=== PATIENT | female | born 1980 | race Caucasian/White ===

== ENCOUNTER 2019-09-10 12:55 | Emergency (ER) | payer OTHER, SELFPAY ==
[2019-09-10 12:56] VITALS: BP 119/94; PULSE 95; RESP 16; TEMP 36.3; O2SAT 96; BMI 56.2
--- NOTE | 2019-09-10 13:49 | ED.VIS.GEN ---
History of Present Illness Chief Complaint: Other, Pain/Inj Narrative: 39-year-old female presenting for testing for COVID?19. 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 He tested positive so she came to be tested. She states she sometimes has a cough and sometimes has a sore throat but otherwise has not had any significant symptoms. She states that her boss as well as her primary care doctor told her to come to the emergency room to be tested instead of quarantining at home. She states that they have not tested the patients that she has been around yet. She has had no fever, loss of taste or smell, chest pain, shortness of breath or other severe symptoms. Past Medical History - Allergies and Home Meds Allergies/Adverse Reactions: Allergies Penicillins [PCN] Allergy (Verified 07/09/15 11:02) Rash Primary Care Physician: Leonor Edmond MD [Primary Care Provider] - Prior records reviewed: Yes Surgical History: noncontributory Lives: Spouse/ Significant Other Smoking Status: Never smoker Alcohol: None Drugs: None Review of Systems General: Denies: Chills, Fever, Sweats Eyes: Denies: Visual changes - bilaterally, Diplopia ENT: Reports: Sore throat. Denies: Rhinorrhea Cardiovascular: Denies: Chest pain, Palpitations Respiratory: Reports: Cough. Denies: Dyspnea, Dyspnea on exertion Gastrointestinal: Denies: Abdominal pain, Nausea, Vomiting, Diarrhea, Melena, Hematochezia Genitourinary: Denies: Dysuria, Hematuria, Frequency Musculoskeletal: Denies: Back pain, Extremity Pain Skin: Denies: Rash, Wounds Neurological: Denies: Headache, Weakness, Numbness Physical Exam Vital Signs/Narrative: Vital Signs Temp Pulse Resp BP Pulse Ox 09/10/19 12:56 97.4 F L 95 16 119/94 H 96 Inital Vital Signs reviewed: Yes General: Obese, No Acute Distress Head: Normocephalic, Atraumatic Eyes: Perrl ENT: Moist mucous membranes Cardiovascular: Regular rate, Regular rhythm Abdomen: Soft Extremities: Nontender Skin: Normal color Neurological: Alert, Oriented x3 Psychological: Normal affect Diagnostic/Tx/Re-eval - Medical Decision Making Patient presents with very mild symptoms and wants to be tested for COVID?19. Her has already tested positive today. She likely has COVID?19. I recommended to her that she should quarantine. 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 She acknowledged understanding of this. Impression: 1. Likely Covid-19 exposure ED Disposition - Plan for ED Patient: Disposition: Home or Assisted Living Diagnosis: URI, acute, COVID-19 Instructions: ED URI Viral Referrals: Leonor Edmond MD [Primary Care Provider] -
[2019-09-10 14:44] LABS: Probe Check PASS; Specimen Processing Control PASS
== END 2019-09-10 14:02 | disposition home or self-care (01) ==
PROVIDERS: Emergency Provider Student in an Organized Health Care Education/Training Program; PCP Family Medicine
DX: J06.9 Acute upper respiratory infection, unspecified (principal); U07.1 COVID-19
CPT/HCPCS: 87635; 94799; 99282; U0003

== ENCOUNTER 2021-10-12 09:30 | Outpatient (RCR) | payer SELFPAY ==
[2021-10-05 08:47] VITALS: BP 172/96; PULSE 76; TEMP 36.1; BMI 60.0
--- NOTE | 2021-10-05 12:54 | HP.PCM_ITS ---
History of Present Illness Date of Service: 10/05/21 Chief Complaint: Swelling, edema, and lymphedema in the lower extremities bilaterally History of Wound: This is a 41-year-old female who presents with swelling, edema, and lymphedema in the lower extremities bilaterally. These manifestations have been present for a prolonged period of time, but more severe within the last 2 to 3 months. The manifestations are slightly more pronounced in the left lower extremity. Mild erythema has been noted in the supramalleolar area of the left lower extremity, diagnosed by her primary care physician's as cellulitis, and she has completed a recent course of doxycycline, and is currently on Keflex orally. She weighs 480 pounds, and stands 6 feet 3 inches tall. Her BMI is 60. Therefore, she is morbidly obese. She claims to be active, employed as the digital project manager of a assisted. She claims to sleep on a flat mattress at night, with her legs slightly elevated. The swelling is minimal in the morning upon awakening, and more pronounced in the evening, prior to bedtime. She denies a history of lower extremity thrombophlebitis. [facility] Medical History GERD (gastroesophageal reflux disease) Hypertension Hypothyroidism Leg edema Leg swelling Lymphedema associated with obesity Morbid obesity Home Medications furosemide 40 mg tablet 40 mg PO DAILY 09/29/14 [History Last Taken Unknown] glucosamine HCl 500 mg-msm 83 mg-chondroitin 400 mg tablet 1 ea PO DAILY 09/29/14 [History Last Taken Unknown] lisinopril 10 mg tablet 10 mg PO DAILY 09/29/14 [History Last Taken Unknown] loratadine 10 mg tablet (Allergy Relief (loratadine)) 10 mg PO DAILY 09/29/14 [History Last Taken Unknown] metoprolol succinate 25 mg tablet,extended release 24 hr 25 mg PO DAILY 09/29/14 [History Last Taken Unknown] multivitamin,[id number]-qobkkujc 27 mg-0.4 mg tablet (Therems-M) 1 tab PO DAILY 09/29/14 [History Last Taken Unknown] potassium chloride 10 mEq tablet,extended release (Klor-Con) 10 meq PO DAILY 09/29/14 [History Last Taken Unknown] naproxen 500 mg tablet 500 mg PO BID PRN ##20 11/06/16 [Rx Last Taken Unknown] Allergy/AdvReac Type Severity Reaction Status Date / Time Penicillins [PCN] Allergy Rash Verified 07/09/15 11:02 Surgical History History of section History of cholecystectomy History of right oophorectomy Social History Smoking Status: Former smoker Vital Signs Vital Signs Vital Signs: 10/05/21 08:47 Temperature 97.0 F L Temperature Source Temporal Pulse Rate 76 Blood Pressure 172/96 H Blood Pressure Mean 121 Blood Pressure Source Monitor Blood Pressure Position Sitting Blood Pressure Location Right Arm Weight Weight: 480 lb 9.723 oz Body Mass Index (BMI) 60.0 Physical Exam Const alert, oriented x3 and no apparent distress Constitutional Narrative: The patient is morbidly obese, standing 6 feet 3 inches tall and weighing 480 pounds. Her BMI is 60. General Appearance: cooperative, comfortable, well kempt and well developed Orientation / Consciousness: awake, oriented to person, oriented to place and oriented to time Exam Limitations: no limitations Nutritional Appearance: morbidly obese HEENT normocephalic and head/scalp atraumatic Head and Scalp: normal to inspection, normocephalic and atraumatic External Ear: external ears normal Eyes PERRL and EOMs intact bilaterally General Eye: normal appearance of both eyes Resp normal respiratory effort, normal air movement, no retractions and no use of accessory muscles Effort and Inspection: able to speak in complete sentences Extremity no calf tenderness General Extremity: Negative for clubbing or cyanosis Skin Wound Narrative: There are no open wounds or ulcerations in the patient's lower extremities. There are no significant skin changes, though faint inflammatory erythema is noted in the left supramalleolar area. There is significant swelling, edema, and lymphedema bilaterally, more pronounced on the left. Scattered telangiectasias are noted bilaterally Neuro oriented x3, CN's II-XII intact bilaterally, moves all extremities and no focal motor deficits Sensorium / Orientation: awake, alert, oriented to person, oriented to place and oriented to time Psych Appearance: grossly normal and appropriate Attitude: calm Activity / Motor Behavior: appropriate eye contact Speech: normal speech Mood & Affect: euthymic mood Thought Process: normal thought process Thought Content: normal thought content Attention / Concentration: attention grossly intact Debridement Note Debridement Note No debridement was completed: No debridement was completed today (There are no open wounds or ulcerations.) Post-Debridement Measurements and Additional Note: Post-Debridement Measurements/Treatment WC - Nurse 1 - General Ulcer Assessment Start: 10/05/21 08:47 Freq: Status: Active Protocol: MANDO.LOWEXT Activity Type Activity Date Activity User E-sign Co-sign Detail Recorded Client Recorded Date Recorded By Document 10/05/21 08:47 CALEB [id number] 10/05/21 08:57 CALEB 10/05/21 08:47 WC - Today's Visit Information Type of service Follow-up Visit (Physician/FACILITIES FLIGHT CHECK PILOT ) Arrival Mode Ambulatory Patient Identification Verified (Name & Yes ) Height and Weight Height 6 ft 3 in Weight 480 lb 9.723 oz Weight in Pounds 480.6 lbs Body Mass Index (BMI) 60.0 BMI Classification Obese BSA - Francisco 3.19 Vital Signs Temperature (97.8 F-99.1 F) 97.0 F L Temperature Source Temporal Pulse Rate (60-100) 76 Pulse Location Monitor Blood Pressure (90/60-120/80) 172/96 H Blood Pressure Mean 121 Source Monitor Position Sitting Blood Pressure Location Right Arm History Since Last Visit- (Skip if this is Patient's initial visit) Have you changed medications since your No last visit? Any new allergies or adverse reactions No Had a fall/change in ADL's that may No increase risk of falls Signs or symptoms of abuse and/or No neglect since last visit Have you been in the hospital since your No last visit? Has dressing in place as prescribed No Has compression in place as prescribed N/A Has offloadiing in place as prescribed N/A Experienced any changes in pain level or No management Left Footwear Regular Shoe Right Footwear Regular Shoe Pain Scale: 0-10 Numeric Is Patient Pain Free? Yes Lower Extremity Assessment/ Foot Assessment/ Toe Nail Assessment Left -Popliteal Doppler Multiphasic -Posterior Tibial Doppler Multiphasic -Dorsalis Pedis Doppler Multiphasic -Extremity Color Red,Normal -Hair Growth on Legs No -Hair Growth on Toes No -Temperature of Extremity Warm -Capillary Refill Greater than 3 Seconds -Dependent Rubor No -Blanched when Elevated N/A -Lipodermatosclerosis No -Thick No -Discolored No -Deformed No -Improper Length & Hygeine No Right -Popliteal Doppler Multiphasic -Posterior Tibial Doppler Multiphasic -Dorsalis Pedis Doppler Multiphasic -Extremity Color Red -Hair Growth on Legs No -Hair Growth on Toes No -Temperature of Extremity Warm -Capillary Refill Greater than 3 Seconds -Dependent Rubor No -Blanched when Elevated No -Lipodermatosclerosis No -Thick No -Discolored No -Deformed No -Improper Length & Hygeine No WC - Nurse 1 - General Ulcer Measurement Start: 10/05/21 08:47 Freq: Status: Active Protocol: Activity Type Activity Date Activity User E-sign Co-sign Detail Recorded Client Recorded Date Recorded By Document 10/05/21 08:47 KR [id number] 10/05/21 08:57 KR 10/05/21 08:47 Wound Center Nurse 1 Right Calf (cm) 68.5 Right Ankle (cm) 32.5 Left Calf (cm) 68 Left Ankle (cm) 35.5 WC - Nurse 2 - General Ulcer CM Notes Start: 10/05/21 08:47 Freq: Status: Active Protocol: Activity Type Activity Date Activity User E-sign Co-sign Detail Recorded Client Recorded Date Recorded By Document 10/05/21 09:31 PL [id number] 10/05/21 09:32 PL 10/05/21 09:31 Pain Scale: 0-10 Numeric Is Patient Pain Free? Yes Assessment/Plan Assessment/Plan (1) Leg swelling: CODE(S): M79.89 - Other specified soft tissue disorders (2) Leg edema: CODE(S): R60.0 - Localized edema (3) Lymphedema associated with obesity: CODE(S): I89.0 - Lymphedema, not elsewhere classified; E66.9 - Obesity, unspecified (4) Morbid obesity: CODE(S): E66.01 - Morbid (severe) obesity due to excess calories (5) Hypothyroidism: CODE(S): E03.9 - Hypothyroidism, unspecified (6) Hypertension: CODE(S): I10 - Essential (primary) hypertension (7) History of cholecystectomy: CODE(S): Z90.49 - Acquired absence of other specified parts of digestive tract (8) History of right oophorectomy: CODE(S): Z90.721 - Acquired absence of ovaries, unilateral (9) GERD (gastroesophageal reflux disease): CODE(S): K21.9 - Gastro-esophageal reflux disease without esophagitis (10) History of section: CODE(S): Z98.891 - History of uterine scar from previous surgery PLAN: Plan This is a morbidly obese 41-year-old female presents with a longstanding history of swelling, edema, and lymphedema in her lower extremities. She has been treated for cellulitis recently by her primary care physicians, suspected due to faint erythema in the left supramalleolar area. However, this appears more related to an inflammatory process rather than infection. She is currently taking a course of Keflex, and has been advised to continue to completion. A lengthy discussion has been undertaken at the bedside with the patient, and her , regarding the appropriate measures to be implemented. She has been advised to continue sleeping on a flat mattress at night, and elevation of the lower extremities while sleeping is favorable. She has been encouraged to elevate her lower extremities is much as possible during daytime hours. Leg elevation is to be to heart level, or higher. Prolonged, idle sitting has been discouraged. Activity has been encouraged. Weight loss has been recommended, by any means possible. This may include, among the options, enhancement of activity, exercise, dietary means, etc. Bariatric surgery may even be a consideration, to be discussed with the patient other medical providers. We are to implement compression to the lower extremities by means of a 3M 2 layer compression wrap, which will be changed twice weekly. Compression wraps will be implemented initially, in an effort to minimize the degree of swelling and edema to a baseline level, following which more long-term compression will be employed, such as graduated compression stockings or CircAid garments of at least 20 to 30 mmHg compression. We are to also pursue the possibility of mechanical pneumatic compression garments for the lower extremities, which can be used on a daily basis. The patient is to return in 1 week for reassessment. Total time: 55 minutes
[2021-10-08 11:02] VITALS: BP 141/91; PULSE 91; TEMP 36.1; BMI 60.0
[2021-10-12 09:28] VITALS: BP 143/87; PULSE 98; RESP 18; TEMP 36.4; BMI 60.0
--- NOTE | 2021-10-12 12:32 | HP.PCM_ITS ---
History of Present Illness Date of Service: 10/12/21 Chief Complaint: Swelling, edema, and lymphedema in the lower extremities bilaterally History of Wound: This is a 41-year-old female who presented with swelling, edema, and lymphedema in the lower extremities bilaterally. These manifestations had been present for a prolonged period of time, but more severe within the 2 to 3 months prior to presentation. The manifestations were slightly more pronounced in the left lower extremity. Mild erythema was noted in the supramalleolar area of the left lower extremity, diagnosed by her primary care physician's as cellulitis, and she had completed a recent course of doxycycline, followed by Keflex orally. She weighs 480 pounds, and stands 6 feet 3 inches tall. Her BMI is 60. Therefore, she is morbidly obese. 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 She claims to sleep on a flat mattress at night, with her legs slightly elevated. The swelling is minimal in the morning upon awakening, and more pronounced in the evening, prior to bedtime. She denies a history of lower extremity thrombophlebitis. [facility] Medical History GERD (gastroesophageal reflux disease) Hypertension Hypothyroidism Leg edema Leg swelling Lymphedema associated with obesity Morbid obesity Home Medications furosemide 40 mg tablet 40 mg PO DAILY 09/29/14 [History Last Taken Unknown] glucosamine HCl 500 mg-msm 83 mg-chondroitin 400 mg tablet 1 ea PO DAILY 09/29/14 [History Last Taken Unknown] lisinopril 10 mg tablet 10 mg PO DAILY 09/29/14 [History Last Taken Unknown] loratadine 10 mg tablet (Allergy Relief (loratadine)) 10 mg PO DAILY 09/29/14 [History Last Taken Unknown] metoprolol succinate 25 mg tablet,extended release 24 hr 25 mg PO DAILY 09/29/14 [History Last Taken Unknown] multivitamin,ys-sdwo-ygifiyzj 27 mg-0.4 mg tablet (Therems-M) 1 tab PO DAILY 09/29/14 [History Last Taken Unknown] potassium chloride 10 mEq tablet,extended release (Klor-Con) 10 meq PO DAILY 09/29/14 [History Last Taken Unknown] naproxen 500 mg tablet 500 mg PO BID PRN ##20 11/06/16 [Rx Last Taken Unknown] Allergy/AdvReac Type Severity Reaction Status Date / Time Penicillins [PCN] Allergy Rash Verified 07/09/15 11:02 Surgical History History of section History of cholecystectomy History of right oophorectomy Social History Smoking Status: Former smoker Vital Signs Vital Signs Vital Signs: 10/12/21 09:28 Temperature 97.6 F L Temperature Source Temporal Pulse Rate 98 Respiratory Rate 18 Blood Pressure 143/87 H Blood Pressure Mean 105 Blood Pressure Source Monitor Blood Pressure Position Sitting Blood Pressure Location Right Arm Oxygen Delivery Method Room Air Weight Weight: 480 lb 9.723 oz Body Mass Index (BMI) 60.0 Physical Exam Const alert, oriented x3 and no apparent distress Constitutional Narrative: The patient is morbidly obese, standing 6 feet 3 inches tall and weighing 480 pounds. Her BMI is 60. General Appearance: cooperative, comfortable, well kempt and well developed Orientation / Consciousness: awake, oriented to person, oriented to place and oriented to time Exam Limitations: no limitations Nutritional Appearance: morbidly obese HEENT normocephalic and head/scalp atraumatic Head and Scalp: normal to inspection, normocephalic and atraumatic External Ear: external ears normal Eyes PERRL and EOMs intact bilaterally General Eye: normal appearance of both eyes Resp normal respiratory effort, normal air movement, no retractions and no use of accessory muscles Effort and Inspection: able to speak in complete sentences Extremity no calf tenderness General Extremity: Negative for clubbing or cyanosis Skin Wound Narrative: There are no open wounds or ulcerations in the patient's lower extremities. There are no significant skin changes, though faint inflammatory erythema is noted in the left supramalleolar area. There is significant swelling, edema, and lymphedema bilaterally, more pronounced on the left. However, the degree of swelling and edema in her lower extremities has improved since her initial visit a week ago. Circumference measurements are documented elsewhere. Scattered telangiectasias are noted bilaterally Neuro oriented x3, CN's II-XII intact bilaterally, moves all extremities and no focal motor deficits Sensorium / Orientation: awake, alert, oriented to person, oriented to place and oriented to time Psych Appearance: grossly normal and appropriate Attitude: calm Activity / Motor Behavior: appropriate eye contact Speech: normal speech Mood & Affect: euthymic mood Thought Process: normal thought process Thought Content: normal thought content Attention / Concentration: attention grossly intact Debridement Note Debridement Note No debridement was completed: No debridement was completed today (There are no open wounds or ulcerations.) Post-Debridement Measurements and Additional Note: Post-Debridement Measurements/Treatment - Nurse 1 - General Ulcer Assessment Start: 10/05/21 08:47 Freq: Status: Active Protocol: BANDAR Activity Type Activity Date Activity User E-sign Co-sign Detail Recorded Client Recorded Date Recorded By Document 10/05/21 08:47 [id number] 10/05/21 08:57 KR Document 10/08/21 11:02 KR [id number] 10/08/21 11:03 KR Document 10/12/21 09:28 [facility] [id number] 10/12/21 09:38 [facility] 10/05/21 10/08/21 10/12/21 08:47 11:02 09:28 - Today's Visit Information Type of service Follow-up Visit Nurse-only Follow-up Visit (Physician/BAKER BISCUIT Visit (Physician/BAKER BISCUIT ) ) Arrival Mode Ambulatory Ambulatory Ambulatory Transfer Assistance None Accompanied by Patient Identification Verified (Name & Yes Yes Yes ) Patient Requires Transmission-Based No Precautions Height and Weight Height 6 ft 3 in Weight 480 lb 9.723 oz Weight in Pounds 480.6 lbs Body Mass Index (BMI) 60.0 60.0 60.0 BMI Classification Obese Obese Obese BSA - Francisco 3.19 Vital Signs Temperature (97.8 F-99.1 F) 97.0 F L 97.0 F L 97.6 F L Temperature Source Temporal Temporal Temporal Pulse Rate (60-100) 76 91 98 Pulse Location Monitor Monitor Monitor Respiratory Rate (12-18) 18 Respiratory rate source Observation Oxygen Delivery Method Room Air Blood Pressure (90/60-120/80) 172/96 H 141/91 H 143/87 H Blood Pressure Mean 121 107 105 Source Monitor Monitor Monitor Position Sitting Semi-Fowlers Sitting Blood Pressure Location Right Arm Left Arm Right Arm History Since Last Visit- (Skip if this is Patient's initial visit) Have you changed medications since your No No No last visit? Any new allergies or adverse reactions No No No Had a fall/change in ADL's that may No No No increase risk of falls Signs or symptoms of abuse and/or No No No neglect since last visit Have you been in the hospital since your No No No last visit? Has dressing in place as prescribed No No No Has compression in place as prescribed N/A Yes No Has offloadiing in place as prescribed N/A N/A N/A Experienced any changes in pain level or No No No management Left Footwear Regular Shoe Regular Shoe Regular Shoe Right Footwear Regular Shoe Regular Shoe Regular Shoe Pain Scale: 0-10 Numeric Is Patient Pain Free? Yes Yes Yes Lower Extremity Assessment/ Foot Assessment/ Toe Nail Assessment Left -Popliteal Doppler Multiphasic -Posterior Tibial Doppler Multiphasic -Dorsalis Pedis Doppler Multiphasic -Extremity Color Red,Normal -Hair Growth on Legs No -Hair Growth on Toes No -Temperature of Extremity Warm -Capillary Refill Greater than 3 Seconds -Dependent Rubor No -Blanched when Elevated N/A -Lipodermatosclerosis No -Thick No -Discolored No -Deformed No -Improper Length & Hygeine No Right -Popliteal Doppler Multiphasic -Posterior Tibial Doppler Multiphasic -Dorsalis Pedis Doppler Multiphasic -Extremity Color Red -Hair Growth on Legs No -Hair Growth on Toes No -Temperature of Extremity Warm -Capillary Refill Greater than 3 Seconds -Dependent Rubor No -Blanched when Elevated No -Lipodermatosclerosis No -Thick No -Discolored No -Deformed No -Improper Length & Hygeine No WC - Nurse 1 - General Ulcer Measurement Start: 10/05/21 08:47 Freq: Status: Active Protocol: Activity Type Activity Date Activity User E-sign Co-sign Detail Recorded Client Recorded Date Recorded By Document 10/05/21 08:47 KR [id number] 10/05/21 08:57 KR Document 10/08/21 11:04 KR [id number] 10/08/21 11:04 KR Document 10/12/21 09:28 [facility] [id number] 10/12/21 09:38 BMF 10/05/21 10/08/21 10/12/21 08:47 11:04 09:28 [facility] Nurse 1 Lower Limb Edema Present Yes Right Calf (cm) 68.5 73.4 73 Right Ankle (cm) 32.5 42.5 32.1 Left Calf (cm) 68 72.5 70.5 Left Ankle (cm) 35.5 40.5 35.7 WC - Nurse 2 - General Ulcer CM Notes Start: 10/05/21 08:47 Freq: Status: Active Protocol: Activity Type Activity Date Activity User E-sign Co-sign Detail Recorded Client Recorded Date Recorded By Document 10/05/21 09:31 PL [id number] 10/05/21 09:32 PL 10/05/21 09:31 Pain Scale: 0-10 Numeric Is Patient Pain Free? Yes WC - Nurse 3 - General Ulcer D/C NN Start: 10/05/21 08:47 Freq: Status: Active Protocol: Activity Type Activity Date Activity User E-sign Co-sign Detail Recorded Client Recorded Date Recorded By Document 10/05/21 07:33 PL [id number] 10/06/21 07:34 PL Document 10/08/21 11:02 KR [id number] 10/08/21 11:03 KR Document 10/12/21 10:15 [facility] [id number] 10/12/21 10:16 BMF 10/05/21 10/08/21 10/12/21 07:33 11:02 10:15 Wound Care Nurse 3 Bilateral -Multi-Layered Wrap Application Multi-Layer Multi-Layer Comp - Bilat ($ Comp - Bilat ($ ) ) Right -Compression Wrap Surepress ($) -Other APPLIED PER JF RN Left -Compression Wrap Surepress ($) -Other PER JF RN APPLIED Treatment Response Procedure Tolerated Well Vital Signs Temperature (97.8 F-99.1 F) 97.0 F L Temperature Source Temporal Pulse Rate (60-100) 91 Pulse Location Monitor Blood Pressure (90/60-120/80) 141/91 H Blood Pressure Mean 107 Source Monitor Position Semi-Fowlers Blood Pressure Location Left Arm Pain Scale: 0-10 Numeric Is Patient Pain Free? Yes Yes Yes WC - Visit Discharge Discharge Condition Stable Stable Ambulatory Status Ambulatory Ambulatory Transportation Private Auto Private Auto Accompanied by Assessment/Plan Assessment/Plan (1) Leg swelling: CODE(S): M79.89 - Other specified soft tissue disorders (2) Leg edema: CODE(S): R60.0 - Localized edema (3) Lymphedema associated with obesity: CODE(S): I89.0 - Lymphedema, not elsewhere classified; E66.9 - Obesity, unspecified (4) Morbid obesity: CODE(S): E66.01 - Morbid (severe) obesity due to excess calories (5) Hypothyroidism: CODE(S): E03.9 - Hypothyroidism, unspecified (6) Hypertension: CODE(S): I10 - Essential (primary) hypertension (7) History of cholecystectomy: CODE(S): Z90.49 - Acquired absence of other specified parts of digestive tract (8) History of right oophorectomy: CODE(S): Z90.721 - Acquired absence of ovaries, unilateral (9) GERD (gastroesophageal reflux disease): CODE(S): K21.9 - Gastro-esophageal reflux disease without esophagitis (10) History of section: CODE(S): Z98.891 - History of uterine scar from previous surgery PLAN: Plan This is a morbidly obese 41-year-old female with a long-standing history of swel ling, edema, and lymphedema in her lower extremities. She has been treated for cellulitis recently by her primary care physicians, suspected due to faint erythema in the left supramalleolar area. However, this appears more related to an inflammatory process rather than infection. She has recently completed courses of oral antibiotics. A lengthy discussion has been undertaken at the bedside with the patient, and her , regarding the appropriate measures to be implemented. She has been advised to continue sleeping on a flat mattress at night, in which her lower extremities are elevated to heart level. She has been encouraged to elevate her lower extremities is much as possible during daytime hours. Leg elevation is to be to heart level, or higher. Prolonged, idle sitting has been discouraged. Activity has been encouraged. Weight loss has been recommended, by any means possible. This may include, among the options, enhancement of activity, exercise, dietary means, etc. Bariatric surgery may even be a consideration. We implemented compression to the lower extremities by means of a 3M 2 layer compression wrap, changed twice weekly. However, due to the patient's size, more than 1 compression wrap was required for each lower extremity, which was not well-tolerated by the patient. Furthermore, patient's job requires her to be on her feet a good part of each day, which resulted in persistent swelling, with pain elicited due to the constraints of the compression wraps. Ultimately, it is felt that the patient may be better served at the [facility] at [facility], where resources for treatment of lymphedema are thought to be more plentiful. A referral will be made. Pneumatic mechanical compression garments have been ordered, and are anticipated to play a role in the patient's short and long-term management. The patient is to be [facility] from [facility], but will return if services are unsuccessful or insufficient at the [facility]. There are currently no open wounds or ulcerations in the patient's lower extremities. Total time: 29 minutes
== END 2021-10-12 15:19 | disposition home or self-care (01) ==
LOC: WC 09:30
PROVIDERS: PCP Family Medicine; Visit Provider Surgery
DX: I89.0 Lymphedema, not elsewhere classified (principal); E66.01 Morbid (severe) obesity due to excess calories; Z68.44 Body mass index [BMI] 60.0-69.9, adult; Z87.891 Personal history of nicotine dependence; E03.9 Hypothyroidism, unspecified; K21.9 Gastro-esophageal reflux disease without esophagitis; R60.0 Localized edema; I10 Essential (primary) hypertension; M79.89 Other specified soft tissue disorders
CPT/HCPCS: 29581; 99213; G0463

== ENCOUNTER 2021-10-27 14:28 | Outpatient (RCR) | payer SELFPAY ==
--- NOTE | 2021-10-27 14:35 | HP.OTEVAL ---
Patient's Visit Information EDUARDO PEREZ is a 41 year old F, referred to Occupational Therapy by Dr. Zoran Triplett MD, with a diagnosis of . Date of Evaluation: Occupational Therapist: Estelle Landis, FORREST/Sandi, CHT - Visit Plan TEXT: Thank you for the opportunity to evaluate your patient. For Medicare and Medicare HMO plans, please review the plan of care and approve it. It will need to be FAXED BACK to us at [phone] for Medicare purposes. Please let me know if there are questions or concerns regarding this plan of care. Physician Signature: Date:
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
--- NOTE | 2022-01-19 11:29 | HP.OTDCNRP_ITS ---
EDUARDO LOIDA PEREZ was seen in my office for initial evaluation on 10/27/21. The following Plan of Care was established for this patient: Anticipated Interventions: Education re assistive Equipment, Education re Diagnosis, Education re Life-long lymphedema Management, Education re Self- Bandaging Techniques, Education re Skin Care and Precautions, Education re Self Massage Techniques, Education re Correct Donning Tech,Care&Wearing Sched Comp Garments, Caregiver Training, Home Program This patient was last seen in our office 10/27/21. Pertinent comments regarding their Occupational therapy will appear below: Pt was seen for OT eval only. No further apts scheduled and due to time lapse in services pt d.c at this time. At this point I will be discontinuing this patient from occupational therapy. I would be happy to see this patient again in the future if found appropriate by the physician. Thank you! Estelle Landis, OTR/L, CHT
== END 2021-10-27 19:00 | disposition home or self-care (01) ==
LOC: OT 14:28
PROVIDERS: PCP Family Medicine; Visit Provider Surgery
DX: I89.0 Lymphedema, not elsewhere classified (principal); R60.0 Localized edema
CPT/HCPCS: 97166; 97530

== ENCOUNTER 2022-12-14 07:01 | Emergency (ER) | payer SELFPAY ==
[2022-12-14 07:03] VITALS: BP 149/78; PULSE 85; RESP 14; TEMP 36.8; O2SAT 98; BMI 71.3
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
[2022-12-14] MEDS: Acetaminophen 500 MG Tablet 1000 MG PO (07:47)
== END 2022-12-14 08:46 | disposition home or self-care (01) ==
PROVIDERS: Emergency Provider Emergency Medicine; PCP Family Medicine; Visit Provider Emergency Medicine
DX: S09.90XA Unspecified injury of head, initial encounter (principal); S16.1XXA Strain of muscle, fascia and tendon at neck level, initial encounter; Z87.891 Personal history of nicotine dependence; V89.0XXA Person injured in unspecified motor-vehicle accident, nontraffic, initial encounter
CPT/HCPCS: 70450; 72125; 99284